=== PATIENT | male | born 1945 | race Caucasian/White ===

== ENCOUNTER → 2017-01-13 | Outpatient (CLI) | payer OTHER ==
[~2017-01-13] VITALS: Ht 190.5 cm; Wt 97.1 kg
[~2017-01-13] MED LIST: ADDERALL 10 MG10 MG PO; ADDERALL 20 MG20 M1 PO; ALEVE220 MG PO; ASPIR 8181 MG PO; ATORVASTATIN CA40 MG PO; BYSTOLIC 5 MG5 M1 PO; CIALIS20 MG PO; FLEXERIL PO; HYDROCODONE-AP1 EAC6 PO; JANUMET XR 1001 EACH PO; JANUVIA100 MG PO; KRILL OIL 1,001 EAC1 PO; LEXAPRO 10 MG T10 M1 PO; LOFIBRA160 MG PO; METFORMIN HCL500 MG PO; MICROZIDE12.5 MG PO; NORCO 5-325 TA1 EACH PO; NORFLEX100 MG PO; UNICOMPLEX M TA1 TA1 PO; VALSARTAN-HCTZ1 EAC4 PO; VASCEPA1 GM PO; ZETIA10 MG PO
--- NOTE | ~2017-01-13 | S ---
[facility] [address] [address] SURGICAL PATH RPT PROCEDURE Name: SHAAN KNAPP Room #: REG CLI M.R.#: [id number] Admission: 01/13/17 Date of : 47 Discharge: Report #: [id number] Path Case #: [id number] PATHOLOGY REPORT COLLECTION DATE: 01/13/2017 RECEIVED DATE: 01/13/2017 SUBMITTING PHYS: Dr. Tc Good OTHER PHYS: Dr Marguerite Perez SPECIMEN(S) RECEIVED: A.Proximal ascending bx B.Polyp 20 cm * * * * * * * * * * * * FINAL DIAGNOSIS: A. Large intestine, proximal ascending, endoscopic biopsy: - Pigmented macrophages within lamina propria, compatible with melanosis coli. - Background of focal nonspecific active cryptitis along with increased lamina propria cellularity. (Please see comment) - Negative for dysplasia or malignancy. B. Polyp, 20 cm, endoscopic biopsy: - Tubulovillous adenoma. - Negative for high grade dysplasia. COMMENT: Examination shows focal surface epithelial inflammation as well as active cryptitis. There are no crypt abscesses present. The lamina propria cellularity is mixed comprised of lymphocytes as well as eosinophils. In addition, there are numerous melanophages present compatible with melanosis coli. There are no granulomata present. There are no viral inclusions present. Overall, findings are nonspecific and may represent focal mild active colitis, a self limited episode of colitis, as well as focal diverticulitis. History of diverticulosis is noted. There is no dysplasia or malignancy present. Clinical correlation is suggested. (IUV:csd; d/t: 01/14/2017) PATHOLOGIST: Angelica Oliva M.D. REPORT ELECTRONICALLY SIGNED BY: Angelica Oliva M.D. DATE/TIME: 01/14/2017 15:26 * * * * * * * * * * * * GROSS PATHOLOGY: A. Received in formalin labeled "Shaan Knapp, proximal ascending," is a segment of heranndez soft tissue measuring 1.1 cm in maximum [address] [address] SURGICAL PATH RPT PROCEDURE Name: SHAAN KNAPP Room #: REG [facility].#: [id number] Admission: 01/13/17 Date of : 47 Discharge: Report #: [id number] Path Case #: [id number] dimension. The specimen is submitted entirely in cassette A1. B. Received in formalin labeled "Shaan Knapp, polyp 20 cm," and additionally labeled on the requisition as, "polyp 20 cm". Received is a 0.9 x 0.7 x 0.3 cm polypoid piece of hernandez soft tissue. The margin is inked and the tissue is sectioned perpendicular to the margin and submitted in its entirety in cassette B1. (CAA; 01/13/2017) CLINICAL HISTORY: Screening, colon polyps, diverticulosis INITIAL CPT CODE(S): A; 72637 B; 73442 Professional services performed by [facility] at [address] , [place] [address] Technical services performed by [facility] at [address] [place] [address], [address], [place] [address]. [facility] [address] [place] [address] PHONE: [phone] DIRECTOR: Kevin Nunn M.D. * * * END OF REPORT * * *
--- NOTE | ~2017-01-13 | P ---
[facility] [place] [address] PROCEDURE REPORT Name: JAN KNAPP [facility]: [facility] [id number] Admission: 01/13/17 Attend Phys: Tc Good MD Discharge: Date of : 47 Report #: [id number] THIS REPORT FOR: //name// CC: Marguerite Good BRIEF HISTORY: The patient is a 71-year-old male who reports his last colonoscopy was about 15 years ago. He does not recall that anything was removed. He is here today for average risk screening colonoscopy. PREOPERATIVE DIAGNOSIS: Average risk screening colonoscopy. POSTOPERATIVE DIAGNOSES: 1. Colon polyps. 2. Moderate sigmoid diverticulosis coli. MEDICATIONS: Deep sedation with propofol per Anesthesia. SPECIMEN: 1. Diminutive proximal ascending colon polyp. 2. An 8-10 mm sessile polyp, narrowed base, 20 cm. ESTIMATED BLOOD LOSS: 3 mL PROCEDURE: Colonoscopy to cecum and terminal ileum with snare polypectomy and biopsy. FINDINGS: Prior to propofol sedation, procedure of colonoscopy discussed with the patient as well as potential risks and its complications. He indicates he understands and desires to proceed. DESCRIPTION OF PROCEDURE: With the patient in left lateral decubitus position, digital examination was completed which revealed no abnormalities. Subsequently, a Wavo.me video colonoscope was introduced into the rectum, advanced under direct vision to the cecum. Done with minimal difficulty. The cecum was identified by the ileocecal valve and the appendiceal orifice. I was able to visualize the distal segment of the terminal ileum, which was inspected and noted to be unremarkable. At that point, the scope was slowly withdrawn and careful circumferential views obtained including retroflexing the scope in the ascending colon. Upon slow withdrawal of the scope, there were noted to be some limitations of the proximal colon. There was some adherent bilious material, which is not completely washed away. Fairly good views were obtained. A diminutive polyp was seen and removed by biopsy from the proximal ascending colon. As we withdrew the scope, the prep was better and generally good for the remainder of the colon. However, in the left colon, in particular the sigmoid colon there was noted to be moderately severe diverticular disease without [facility] [address] [place] [address] PROCEDURE REPORT Name: JAN KNAPP Room #: REG CLI [facility].#: [id number] Admission: 01/13/17 Attend Phys: Tc Good MD Discharge: Date of : 47 Report #: [id number] endoscopic evidence of diverticulitis. At 20 cm, an 8-10 mm polyp on a narrowed base was seen and removed by cold snare polypectomy. Scope was further withdrawn and no additional abnormalities were seen. Scope was withdrawn in the rectum. Upon retroflexion, no abnormalities were seen. The scope withdrawn. The patient tolerated the procedure well. CONDITION OF THE PATIENT UPON DISCHARGE: Following procedure, the patient was drowsy, aroused, conversant and will be discharged home when fully ambulatory. INSTRUCTIONS TO THE PATIENT AND FAMILY AT THE TIME OF DISCHARGE: Two polyps were identified and removed as described above. The distal colon polyp appears to be adenomatous. Therefore, due to the finding of a significant polyp of significant size as well as some limitations of prep in the proximal colon, we will have him return in 3 years for followup colon exam. He will, otherwise, return to care of Dr. Marguerite Perez and return to see me as needed. <ELECTRONICALLY SIGNED> By: Tc Good MD 01/14/17 1224 0935 1146 Tc Good MD /nt
== END | disposition home or self-care (01) ==
LOC: GI 07:27
DX: Z12.11 Encounter for screening for malignant neoplasm of colon (principal); D12.5 Benign neoplasm of sigmoid colon; K63.89 Other specified diseases of intestine; K57.30 Diverticulosis of large intestine without perforation or abscess without bleeding
CPT/HCPCS: 62110; 62900

== ENCOUNTER → 2019-01-12 | Outpatient (CLI) | payer OTHER ==
--- NOTE | 2019-01-12 15:32 | EXE ---
[facility] [place] [address] [place] [address] STRESS ECHOCARDIOGRAM Name: JAN KNAPP Room #: REG [facility] Means#: [id number] ������������� Admission: 01/12/19 ������������� Attend Phys: Dean Edward, Discharge: ��� ������������� ��� Date of : 47 Date of Service: 01/12/19 1532 �� Report #: [id number] �������� ��������������������������������������������[id number] THIS REPORT FOR: //name// APPROVED REPORT Study performed: 01/12/2019 09:29:53 Exam: Stress Echocardiogram Indication: CAD s/p PCI Patient Location: Out-Patient Stress Nurse: Julieth Vallejo RN Room #: Echo lab 2 Status: routine Ht: 6 ft 2 in HR: 58 bpm BP: 136/84 mmHg Rhythm: Bradycardia Medical History Medical History: CAD s/p stent Allergies: No known drug allergies Cardiac Risk Factors: HTN, Hyperlipidemia Previous Cardiac Procedures: PCI Exercise History: Physically active Procedure The patient underwent an Exercise Stress Test using the Gamaliel Protocol. Blood pressure, heart rate, and EKG were monitored. An Echocardiogram was performed by senior controls technician in four stages in quad fashion. At peak stress, four selected images were obtained and placed side by side with resting images for comparison. Stress Test Details Stress Test: Exercise stress testing was performed using a Gamaliel protocol. HR Resting HR: 58 bpm Max Heart Rate (APMHR): 148 bpm Max HR Achieved: 144 bpm Target HR (85% APMHR): 125 bpm % of APMHR: 97 Recovery HR: 74 bpm HR response to stress: Normal HR response to stress BP Resting BP: 136/84 mmHg Max BP: 172/94 mmHg [facility] [address] [place] [address] STRESS ECHOCARDIOGRAM Name: JAN KNAPP Room #: REG CL Vinayak#: [id number] ������������� Admission: 01/12/19 ������������� Attend Phys: Dean Edward, Discharge: ��� ������������� ��� Date of : 47 Date of Service: 01/12/19 1532 �� Report #: [id number] �������� ��������������������������������������������[id number] Recovery BP: 150/86 mmHg BP response to stress: Normal blood pressure response to stress. ECG Clinical Reason for Termination: Maximal effort Exercise duration: 5 min 33 sec Highest Stage Achieved: Stage 2: 2.5 mph at 12% grade. Exercise capacity: 7.2 METs Overall Exercise Capacity for Age: Average Pre-Stress Echo The resting Echocardiogram showed left ventricular contractility with an estimated Ejection Fraction of about >55%. The resting Echocardiogram demonstrated wall motion abnormality in the basal inferior wall. Post-Stress Echo The stress Echocardiogram showed abnormal left ventricular contractility with an estimated Ejection Fraction of about 50%. The stress Echocardiogram demonstrated wall motion abnormality in the inferior wall. Conclusion Clinical Response: Equivocal Exercise Capacity: Below Average Stress ECG Response: Ischemic Stress Echo Images: Ischemic Other Information Study Quality: Adequate ��������������������������������������������� <ELECTRONICALLY SIGNED> ���������������������������������������� By: Dean Edward MD, FACC ��������������������������������������������� 01/12/19 1532 153 31 Dean Edward MD, FAC /INF
== END ==
LOC: CV 06:55
DX: Z01.818 Encounter for other preprocedural examination (principal); I25.10 Atherosclerotic heart disease of native coronary artery without angina pectoris; I10 Essential (primary) hypertension; E78.5 Hyperlipidemia, unspecified

== ENCOUNTER → 2019-01-26 | Outpatient (CLI) | payer OTHER ==
[~2019-01-26] VITALS: Ht 188 cm; Wt 94.3 kg
[~2019-01-26] MED LIST changes: +HYZAAR 100-12.1 EACH PO; +TOPROL XL25 MG PO
[2019-01-26 07:11] VITALS: BP 158/83
[2019-01-26 07:37] LABS: HEMATOCRIT 33.5 % (42.0-52.0); HEMOGLOBIN 11.3 gm/dL (14.0-18.0); MCHC 33.7 g/dL (28.0-37.0); MCV 88.9 fL (80.0-100.0); RBC 3.77 mil/uL (4.50-6.00); RDW 14.9 % (10.5-14.5); WBC 6.5 thou/uL (4.0-11.0)
[2019-01-26 07:43] LABS: CALCIUM 9.6 mg/dL (8.5-10.1); CREATININE 1.1 mg/dL (0.7-1.3); POTASSIUM 3.8 mmol/L (3.5-5.1)
--- NOTE | 2019-01-26 08:34 | EKG ---
[place] [address] [facility] 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1945 Requested By: Dean Edward Order Number: [id number] MD: Mike Soriano Measurements Intervals [place] Rate: 54 P: 35 [place]: 182 QRS: 3 QRSD: 116 T: -4 QT: 462 QTc: 438 Interpretive Statements Sinus rhythm Inferior infarct, old Compared to ECG 06/15/2015 08:16:11 no significant change was found Electronically Signed On 01-26-2019 8:34:46 CDT by Mike Soriano [email or web address] ��������������������������������������������� <ELECTRONICALLY SIGNED> ���������������������������������������� By: Mike Soriano MD, [facility] ��������������������������������������������� 01/26/19 0834 3 Mike Soriano MD, [facility] /EPI
--- NOTE | 2019-01-26 13:05 | NUR ---
1100 PT VOIDED 250 PER URINAL
--- NOTE | 2019-01-26 13:06 | NUR ---
1300---PT VOIDED PER URINAL 250CC
--- NOTE | 2019-01-26 13:31 | NUR ---
1315----PT C/O CHEST FULLNESS, HEADACHE 8/10 HR 88 BP 152/76 OXYGEN SATURATION 98% 2 L OXYGEN PER NC APPLIED.
--- NOTE | 2019-01-26 13:35 | NUR ---
1315-- PT STATES "FEELING BETTER" HR 76, BP 123/62. OXYGEN SAT 98.
--- NOTE | 2019-01-26 13:53 | NUR ---
1345------ECHO IN PROGRESS
--- NOTE | 2019-01-26 14:10 | NUR ---
1400-----Pt STATES FEELING MUCH BETTER" HOB TO 30DEGREES. VSS HR 71, OX SATS 97%, BP 133/66. FAMILY AT BEDSIDE.
--- NOTE | 2019-01-26 15:30 | 2DMMODE ---
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 There is hypokinesis in the inferior wall. There is normal left ventricular wall thickness. The left ventricular systolic function is normal. The left ventricular ejection fraction is within the normal range. LVEF is 55%. Right Ventricle The right ventricle is normal size. The right ventricular systolic function is normal. Atria The left atrium size is normal. The right atrium size is normal. Aortic Valve The aortic valve is normal in structure. There is no aortic valvular stenosis. Mitral Valve The mitral valve is normal in structure. No evidence of mitral valve stenosis. [facility] [address] [place] [address] 2 D/M-MODE ECHOCARDIOGRAM Name: JAN KNAPP Room #: REG CL M.R.#: [id number] ������������� Admission: 01/26/19 ������������� Attend Phys: Dean Edward, Discharge: ��� ������������� ��� Date of : 47 Date of Service: 01/26/191529 �� Report #: [id number] �������� ��������������������������������������������[id number] Tricuspid Valve The tricuspid valve is normal in structure. Pulmonic Valve The pulmonary valve is normal in structure. Great Vessels The aortic root is normal in size. IVC is normal in size and collapses >50% with inspiration. Pericardium There is no pericardial effusion. <Conclusion> The left ventricle is normal size. LVEF is 55%. There is hypokinesis in the inferior wall. The right ventricle is normal size. The left atrium size is normal. The aortic valve is normal in structure. There is no aortic valvular stenosis. The mitral valve is normal in structure. The aortic root is normal in size. There is no pericardial effusion. ��������������������������������������������� <ELECTRONICALLY SIGNED> ���������������������������������������� By: Dean Edward MD, FACC ��������������������������������������������� 01/26/191529 29 29 Dean Edward MD, FACC /INF
--- NOTE | 2019-01-27 08:47 | EKG ---
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1945 Requested By: Dean Edward Order Number: [id number] MD: Sivakumar Sage Measurements Intervals [place] Rate: 81 P: 42 CT: 181 QRS: 26 QRSD: 119 T: -76 QT: 381 QTc: 443 Interpretive Statements Sinus rhythm Nonspecific intraventricular conduction delay Inferior infarct Electronically Signed On 01-27-2019 8:47:12 CDT by Sivakumar Sage [email or web address] ��������������������������������������������� <ELECTRONICALLY SIGNED> ���������������������������������������� By: Sivakumar Sage MD ��������������������������������������������� 01/27/19 0847 1321 1321 MD MIN [place]
--- NOTE | 2019-01-27 17:10 | CATHLAB ---
[facility] [place] [address] INVASIVE PROCEDURE REPORT Name: JAN KNAPP Room #: REG [facility] Means#: [id number] ������������� Admission: 01/26/19 ������������� Attend Phys: Dean Edward, Discharge: ��� ������������� ��� Date of : 47 Date of Service: 01/27/19 1710 �� Report #: [id number] �������� ��������������������������������������������[id number] THIS REPORT FOR: //name// APPROVED REPORT Study performed: 01/26/2019 07:37:17 Patient Details Patient Status: Out-Patient Room #: The patient is a 73 year-old male Event Personnel Dean Edward Fill Technician, Gay Garcia RN RN, Jennifer Gutierres Jackson, Valisa Monitor Procedures Performed Left Heart Cath w/or w/o Coronaries [id number] [facility] Art Access - R femoral artery* Aortogram Abdominal Peripheral Angio [id number] Indication Chest pain Procedure Narrative The patient was brought electively to the Cardiac Catheterization Laboratory and was prepped and draped in a sterile manner. The Right Groin^ was infiltrated with 1% Lidocaine subcutaneous anesthesia. A PINNACLE 6FR Sheath #[id number] sheath was inserted into the RFA^. Coronary angiography was performed using coronary diagnostic catheters. The right coronary system was accessed and visualized with a JR4 catheter. The left coronary system was accessed and visualized with a JL4 catheter. The left ventricle was accessed and visualized with a PIGTAIL catheter. Left ventriculogram was performed in ROCA projection. An aortogram of the abdominal aorta was performed. Closure device was deployed with a 6 Fr MYNXGRIP 6/7F #[id number]. Hemostasis was obtained with manual pressure following sheath removal without any complications. There was no hematoma. Intraoperative Conscious Sedation Sedation start time: 815 Case end Time: 926 Fentanyl 25 mcg Versed 2 mg Fluoro Time: 24.58 minutes Dose: DAP 35816.60 cGycm2 1556 mGy [facility] [place] [address] INVASIVE PROCEDURE REPORT Name: RAJAN RAYSHAWN Room #: REG [facility]#: [id number] ������������� Admission: 01/26/19 ������������� Attend Phys: Dean Edward, Discharge: ��� ������������� ��� Date of : 47 Date of Service: 01/27/19 1710 �� Report #: [id number] �������� ��������������������������������������������[id number] Contrast Type and Amount: Omnipaque 195 ml Hemodynamics The aortic pressure is 168/85 mmHg with a mean of 115 mmHg. The left ventricular pressure is 164/16 mmHg with a mean of mmHg. The left ventricular end diastolic pressure is 31 mmHg. Conclusion #1 dominant right coronary artery is occluded at the distal end of prior stents. Appears to be a moderate long segment with some collateralization from the left system. Angioplasty was attempted with multiple balloons and wires. Was unsuccessful in recanalizing the distal RCA. Will treat this medically due to the significant [id number] collateralization of the PDA AMINA system. #2 LAD is moderately diseased 60% proximal lesion long and calcified a more preserved vessel which extends around the apex with moderate distal disease at the apex #3 circumflex OM is an ostial lesion of 50% also an ostial OM lesion of 40%. There is significant collateralization to the PDA via the septal and possibly OM system. #4 left main is well preserved mildly calcified #5 normal left jugular size with the inferior basilar infarct at segment EF 45-50%. #6 abdominal aorta is ectatic and mildly calcified but no aneurysm. Renal arteries are mildly diseased Rectal indications and plan: Continue aggressive risk factor modification. No indication for revascularization at this time. The PDA is well collateralized via the left system. We will follow that moderate LAD lesion closely. If that which show progression one could give consideration to percutaneous intervention or possible bypass. Neither currently indicated. Patient relatively asymptomatic. ��������������������������������������������� <ELECTRONICALLY SIGNED> ���������������������������������������� By: Dean Edward MD, FACC ��������������������������������������������� 01/27/191709 09 09 Dean Edward MD, FACC /INF
== END | disposition home or self-care (01) ==
LOC: CATH 06:45
PROVIDERS: Internal Medicine Cardiovascular Disease
DX: I25.10 Atherosclerotic heart disease of native coronary artery without angina pectoris (principal); I77.811 Abdominal aortic ectasia; I10 Essential (primary) hypertension; E78.5 Hyperlipidemia, unspecified; I25.2 Old myocardial infarction; E11.9 Type 2 diabetes mellitus without complications; G47.33 Obstructive sleep apnea (adult) (pediatric); E78.00 Pure hypercholesterolemia, unspecified; Z79.4 Long term (current) use of insulin; Z95.5 Presence of coronary angioplasty implant and graft; Z98.890 Other specified postprocedural states; Z79.899 Other long term (current) drug therapy; Z79.82 Long term (current) use of aspirin

== ENCOUNTER → 2019-04-02 | Outpatient (CLI) | payer OTHER | LOC: ULTRA 11:40 | DX: I65.23 Occlusion and stenosis of bilateral carotid arteries (principal) ==

== ENCOUNTER → 2019-12-24 | Outpatient (CLI) | payer OTHER ==
[~2019-12-24] VITALS: Ht 188 cm; Wt 94.8 kg
[~2019-12-24] MED LIST changes: +ALPHA LIPOIC A600 M1 PO; +CO Q-10300 MG PO; +LIPITOR80 MG PO; +MAGNESIUM COMPLEX PO; +METOPROLOL SUCC50 MG PO; +NICOTINAMIDE PO
--- NOTE | 2019-12-27 11:17 | P ---
[facility] [place] [address] [address] [place] [address] PROCEDURE REPORT Name: JAN KNAPP Room #: REG CLI [facility].#: [id number] Admission: 12/24/19 Attend Phys: Tc Good MD Discharge: Date of : 47 Report #: [id number] THIS REPORT FOR: cc: Marguerite Perez MD, Jennifer S. MD Thesing,Tc Smith MD ~ CC: Marguerite Good DATE OF SERVICE: 12/24/2019 BRIEF HISTORY: The patient is a 74-year-old male with history of tubulovillous adenoma 3 years ago for high risk screening. PREOPERATIVE DIAGNOSIS: High risk screening due to history of advanced adenoma. POSTOPERATIVE DIAGNOSES: 1. Moderate sigmoid diverticulosis coli. 2. Small internal hemorrhoids. MEDICATIONS: Deep sedation with propofol per anesthesia. SPECIMEN: None. ESTIMATED BLOOD LOSS: None. PROCEDURE: Colonoscopy to cecum and terminal ileum. FINDINGS: Prior to propofol sedation, procedure of colonoscopy discussed with the patient as well as potential risks and its complications. He indicates he understands and desires to proceed. DESCRIPTION OF PROCEDURE: With the patient in left lateral decubitus position, digital examination was completed, which revealed no abnormalities. Subsequently, the Olympus video colonoscope was introduced in the rectum, advanced under direct vision to the cecum. Done with minimal difficulty. Cecum was identified by the ileocecal valve and the appendiceal orifice. I was able to visualize the distal segment of terminal ileum, which was inspected and noted to be unremarkable. At that point, the scope was slowly withdrawn and careful circumferential views obtained. Upon slow withdrawal of the scope, the prep was good. The mucosa was within normal limits, normal vascular pattern, normal light reflex. As we withdrew the scope, no neoplastic lesions were seen. The mucosa was normal throughout the entire exam. In the sigmoid colon, he was noted to have moderately severe diverticular disease without endoscopic evidence of diverticulitis. Scope was withdrawn in the rectum. No abnormalities were [address] [address] PROCEDURE REPORT Name: JAN KNAPP HALETHORPE Room #: REG [facility] Clary#: [id number] Admission: 12/24/19 Attend Phys: Tc Good MD Discharge: Date of : 47 Report #: [id number] seen. Upon retroflexion, small hemorrhoids were seen. Scope was withdrawn. The patient tolerated the procedure well. CONDITION OF THE PATIENT UPON DISCHARGE: Following procedure, the patient drowsy, aroused, conversant and will be discharged home when fully ambulatory. INSTRUCTIONS TO THE PATIENT AND FAMILY AT THE TIME OF DISCHARGE: No neoplastic lesions seen today. Suggest high fiber diet for the diverticular disease. Given the fact he had an advanced adenoma, suggest return in 5 years for high risk screening colonoscopy. Last colonoscopy was approximately 3 years ago. Withdrawal time from the cecum was 9 minutes 54 seconds. <ELECTRONICALLY SIGNED> By: Tc Good MD 12/27/19 1117 0946 1033 Tc Good MD /nt
== END | disposition home or self-care (01) ==
LOC: GI 07:34
DX: Z12.11 Encounter for screening for malignant neoplasm of colon (principal); Z86.010 Personal history of colon polyps; K57.30 Diverticulosis of large intestine without perforation or abscess without bleeding; K64.8 Other hemorrhoids; I10 Essential (primary) hypertension; E11.9 Type 2 diabetes mellitus without complications; E78.00 Pure hypercholesterolemia, unspecified; I25.2 Old myocardial infarction; G47.30 Sleep apnea, unspecified; Z98.890 Other specified postprocedural states; Z79.899 Other long term (current) drug therapy; Z87.891 Personal history of nicotine dependence; Z79.82 Long term (current) use of aspirin
CPT/HCPCS: 62110; 62900

== ENCOUNTER → 2020-03-06 | Outpatient (CLI) | payer OTHER | LOC: SJCVCIMAG 08:00 | DX: I25.10 Atherosclerotic heart disease of native coronary artery without angina pectoris (principal); I10 Essential (primary) hypertension; I25.5 Ischemic cardiomyopathy; M62.81 Muscle weakness (generalized); E11.9 Type 2 diabetes mellitus without complications ==

== ENCOUNTER → 2020-11-27 | Outpatient (CLI) | payer OTHER | LOC: SJCVC 14:30 | PROVIDERS: ATTEND Internal Medicine Cardiovascular Disease | DX: R94.31 Abnormal electrocardiogram [ECG] [EKG] (principal); R07.9 Chest pain, unspecified; I10 Essential (primary) hypertension; I25.10 Atherosclerotic heart disease of native coronary artery without angina pectoris; R68.89 Other general symptoms and signs; E78.00 Pure hypercholesterolemia, unspecified; E78.5 Hyperlipidemia, unspecified; I25.5 Ischemic cardiomyopathy; E11.9 Type 2 diabetes mellitus without complications; Z79.82 Long term (current) use of aspirin; Z79.84 Long term (current) use of oral hypoglycemic drugs; Z87.891 Personal history of nicotine dependence; Z72.89 Other problems related to lifestyle ==

== ENCOUNTER → 2020-11-30 | Outpatient (CLI) | payer OTHER | LOC: SJCVCIMAG 10:56 | PROVIDERS: ATTEND Internal Medicine Cardiovascular Disease | DX: I25.10 Atherosclerotic heart disease of native coronary artery without angina pectoris (principal); E78.5 Hyperlipidemia, unspecified; E11.9 Type 2 diabetes mellitus without complications; I73.9 Peripheral vascular disease, unspecified; Z79.899 Other long term (current) drug therapy; Z87.891 Personal history of nicotine dependence ==